=== PATIENT | female | born 1955 | race Caucasian/White ===

== ENCOUNTER 2018-12-20 08:05 | Outpatient (CLI) | payer OTHER ==
--- NOTE | 2018-12-20 09:53 | CT ---
CT PARANASAL SINUSES WITHOUT CONTRAST: 12/20/2018 HISTORY: A 63-year-old female with J32.9, chronic sinusitis, and J30.9, allergic rhinitis. FINDINGS: Frontal sinuses: Right frontal sinus hypoplastic and clear. Left frontal sinus clear. Bilateral fr ontal recesses patent and clear. Ethmoid sinus: Many of the bilateral ethmoid septa have been resected, especially on the right, and especially superiorly. More of the left ethmoid septa are preserved. Minimal mucosal thickening, ri ght anterior. Minimal and mild mucosal thickening throughout the left. One of the left posterior et hmoid air cells is opacified. Nasal cavity: Status post partial resections of bilateral middle turbinates. Inferior turbinates pr eserved. Mild rightward deviation of anterior nasal septum. Otherwise, the nasal cavity is clear. Right maxillary sinus: Absent uncinate process. Antrum is clear. Widely patent channel between the antrum, the nasal cavity, and the right ethmoid. Left maxillary sinus: Clear. Absent uncinate process. Mild mucosal thickening at the surgical fowler elayne, between the nasal cavity and the antrum, but without high-grade narrowing. Sphenoid sinus: Bilateral sphenoethmoidal recesses are patent and clear. Bilateral sphenoid air shraddha ls are codominant and clear. Bilateral middle ear cavities and mastoid antra are grossly clear. No high-grade opacification of th e mastoid air cells. No major interval change compared to 12/30/2011 and 09/15/2005. IMPRESSION: 1. Status post bilateral uncinectomies, partial bilateral middle turbinectomies, right ethmoidectomy , and partial left ethmoidectomy. 2. Opacification of one of the left posterior ethmoid air cells. 3. The rest of the paranasal sinuses are clear. 4. No occlusive sinusopathy involving the sinus outlet channels or the surgical channels. POS: CET
== END 2018-12-20 08:06 | disposition home or self-care (01) ==
LOC: BICCT 08:05
PROVIDERS: ATTEND Family Medicine
DX: J32.9 Chronic sinusitis, unspecified (principal); J30.9 Allergic rhinitis, unspecified

== ENCOUNTER 2019-05-09 14:44 | Outpatient (CLI) | payer OTHER ==
--- NOTE | 2019-05-09 15:07 | RAD ---
CHEST TWO VIEWS: HISTORY: Asthma and cough. COMPARISON: None. FINDINGS: Two views of the chest show normal sized cardiomediastinal silhouette. There is no evidence of consol idation, mass, or pleural effusion. The bones are unremarkable. IMPRESSION: No evidence of acute cardiopulmonary disease. POS: OFF
== END 2019-05-09 14:45 | disposition home or self-care (01) ==
LOC: BICRAD 14:44
PROVIDERS: ATTEND Family Medicine
DX: J18.9 Pneumonia, unspecified organism (principal)
CPT/HCPCS: 36415; 71046; 80053; 84443; 85025; 85652

== ENCOUNTER 2020-06-19 13:35 | Outpatient (CLI) | payer BC, OTHER, SELFPAY ==
--- NOTE | 2020-06-19 14:02 | BD ---
Exam: DEXA Bone Density 06/19/20 HISTORY: Osteoporosis screening. COMPARISON: None. FINDINGS: Lumbar Spine: BMD (g/cm2) T-SCORE Z-SCORE L1 0.883 -1.0 0.6 L2 0.850 -1.6 0.1 L3 0.864 -2.0 -0.2 L4 0.812 -2.3 -0.4 L1-L4 0.851 -1.8 0.0 Left Femoral Neck: 0.527 -2.9 -1.4 Total Left Femur: 0.793 -1.2 0.0 WHO classification: Osteoporosis. Impression: Osteoporosis with elevated fracture risk. POS: H
--- NOTE | 2020-06-19 14:04 | MMO ---
Bilateral MAMMO Bilat Screen [facility]. CLINICAL HISTORY: Patient is 64 years old and is seen for screening. The patient has the following family history of breast cancer: maternal grandmother, at age 45. The patient has no personal history of cancer. The patient has a history of left Excisional Biopsy in 1976 - benign. VIEWS: The views performed were: bilateral craniocaudal with tomosynthesis and bilateral mediolateral oblique with tomosynthesis. FILMS COMPARED: The present examination has been compared to prior imaging studies performed at [facility] on 08/12/2010, 08/31/2011, 08/22/2013 and 04/16/2017. This study has been interpreted with the assistance of computer-aided detection. MAMMOGRAM FINDINGS: The breasts are heterogeneously dense, which could obscure a lesion on mammography. There are no suspicious masses, suspicious calcifications, or new areas of architectural distortion. IMPRESSION: THERE IS NO MAMMOGRAPHIC EVIDENCE OF MALIGNANCY. A ROUTINE FOLLOW-UP MAMMOGRAM IN 1 YEAR IS RECOMMENDED. THE RESULTS OF THIS EXAM WERE SENT TO THE PATIENT. ACR BI-RADS Category 1 - Negative MAMMOGRAPHY NOTE: 1. A negative mammogram report should not delay a biopsy if a dominant of clinically suspicious mass is present. 2. Approximately 10% to 15% of breast cancers are not detected by mammography. 3. Adenosis and dense breasts may obscure an underlying neoplasm. Reported by: RADHA LOWRY MD Electonically Signed: [id number]
== END 2020-06-19 13:36 | disposition home or self-care (01) ==
LOC: BICMAMMO 13:35
PROVIDERS: ATTEND Family Medicine
DX: Z12.31 Encounter for screening mammogram for malignant neoplasm of breast (principal); Z13.820 Encounter for screening for osteoporosis; M81.0 Age-related osteoporosis without current pathological fracture; Z80.3 Family history of malignant neoplasm of breast; Z91.89 Other specified personal risk factors, not elsewhere classified
CPT/HCPCS: 77063; 77067; 77080

== ENCOUNTER 2021-07-07 08:46 | Outpatient (CLI) | payer MEDICARE | END 2021-07-07 08:47 | disposition home or self-care (01) | LOC: BICMAMMO 08:46 | PROVIDERS: ATTEND Family Medicine | DX: Z12.31 Encounter for screening mammogram for malignant neoplasm of breast (principal); Z80.3 Family history of malignant neoplasm of breast | CPT/HCPCS: 77063; 77067 ==

== ENCOUNTER 2024-05-03 11:07 | Outpatient (CLI) | payer MEDICARE | END 2024-05-03 11:08 | disposition home or self-care (01) | LOC: ULT 11:07 | PROVIDERS: ATTEND Family Medicine | DX: R89.9 Unspecified abnormal finding in specimens from other organs, systems and tissues (principal) | CPT/HCPCS: 93923 ==